=== PATIENT | female | born 1980 | race Caucasian/White ===

== ENCOUNTER 2017-10-03 12:25 | Emergency (ER) | payer MEDICAID ==
[2017-10-03] MEDS: SOD CHLORIDE 0.9% 1,000 ML IV (13:04)
[2017-10-03] MEDS: ONDANSETRON 4 MG INJ IV (13:04)
[2017-10-03 13:21] LABS: ADD MAN DIFF? NO
[2017-10-03 13:26] LABS: WHITE BLOOD COUNT 8.5 10^3/ul (4.8-10.8)
[2017-10-03 13:26] LABS: BASOPHILS % 0.2 % (0.0-2.0); HEMATOCRIT 39.4 % (37.0-47.0); HEMOGLOBIN 13.7 g/dl (12.0-16.0); LYMPHOCYTES # 1.2 10^3/ul (0.8-2.9); LYMPHOCYTES % 13.6 % (15.0-51.0); MEAN CORPUSCULAR HEMOGLOBIN 29.1 pg (29.0-33.0); MEAN CORPUSCULAR HGB CONC 34.8 g/dl (32.0-37.0); MEAN CORPUSCULAR VOLUME 83.7 fl (82.0-101.0); MEAN PLATELET VOLUME 9.8 fl (7.4-10.4); MONOCYTE # 0.4 10^3/ul (0.3-0.9); MONOCYTES % 5.2 % (0.0-11.0); NEUTROPHIL # 6.8 10^3/ul (1.6-7.5); NEUTROPHILS % 80.4 % (39.0-77.0); PLATELET COUNT 215 10^3/UL (140-415); RED BLOOD COUNT 4.71 10^6/ul (4.20-5.40); RED CELL DISTRIBUTION WIDTH 14.2 % (11.5-14.5)
[2017-10-03 13:39] LABS: ADD UMIC YES; UR ASCORBIC ACID NEGATIVE (NEGATIVE); UR BACTERIA FEW /HPF (NONE SEEN); UR BILIRUBIN (Dip) NEGATIVE (NEGATIVE); UR BLOOD (Dip) NEGATIVE (NEGATIVE); UR CLARITY SLIGHTLY CLOUDY (CLEAR); UR COLOR AMBER (YELLOW); UR GLUCOSE (Dip) 3+ mg/dL (NEGATIVE); UR KETONES (Dip) 2+ mg/dL (NEGATIVE); UR LEUKOCYTE ESTERASE (Dip) NEGATIVE Leu/ul (NEGATIVE); UR MUCUS MODERATE /HPF (NONE SEEN); UR NITRITE (Dip) NEGATIVE (NEGATIVE); UR RBC 0 /HPF (0-5); UR SPECIFIC GRAVITY (Dip) 1.024 (1.003-1.030); UR SQUAMOUS EPITHELIAL CELL FEW /HPF (FEW); UR TOTAL PROTEIN (Dip) 2+ mg/dl (NEGATIVE); UR UROBILINOGEN (Dip) NEGATIVE (NEGATIVE); UR WBC 1 /HPF (0-5)
[2017-10-03 14:15] LABS: ALANINE AMINOTRANSFERASE 24 IU/L (13-69); ALBUMIN 4.1 g/dl (3.3-4.9); ALKALINE PHOSPHATASE 60 IU/L (42-121); ANION GAP 18 (8-16); ASPARTATE AMINO TRANSFERASE 18 IU/L (15-46); BILIRUBIN,INDIRECT 0.4 mg/dl (0-1.1); BILIRUBIN,TOTAL 0.4 mg/dl (0.2-1.3); BLOOD UREA NITROGEN 12 mg/dl (7-20); CALCIUM 9.3 mg/dl (8.4-10.2); CARBON DIOXIDE 25 mmol/L (21-31); CHLORIDE 100 mmol/L (97-110); CREATININE 0.39 mg/dl (0.44-1.00); GLUCOSE 171 mg/dl (70-220); POTASSIUM 3.7 mmol/L (3.5-5.1); SODIUM 139 mmol/L (135-144); TOTAL PROTEIN 7.8 g/dl (6.1-8.1)
== END 2017-10-03 15:20 | disposition home or self-care (01) ==
LOC: FTE 12:25
DX: O21.9 Vomiting of pregnancy, unspecified (principal); O24.112 Pre-existing type 2 diabetes mellitus, in pregnancy, second trimester; R10.2 Pelvic and perineal pain; Z3A.15 15 weeks gestation of pregnancy; Z79.84 Long term (current) use of oral hypoglycemic drugs
CPT/HCPCS: 36415; 76805; 80053; 81001; 84702; 85025; 86900; 86901; 96374; 99285-25

== ENCOUNTER 2018-01-08 20:27 | Outpatient (CLI) | payer MEDICAID ==
[2018-01-08] MEDS: BISACODYL 10 MG SUPP PR (21:54)
[2018-01-09] MEDS: LACTATED RINGER'S 1,000 ML IV ×2 (00:33→02:16)
[2018-01-09] MEDS: ONDANSETRON 4 MG INJ IV (00:33)
[2018-01-09] MEDS: TERBUTALINE 1 MG/ML INJ SC (00:33)
[2018-01-09 01:04] LABS: ALANINE AMINOTRANSFERASE 29 IU/L (13-69); ALBUMIN 3.2 g/dl (3.3-4.9); ALBUMIN/GLOBULIN RATIO 0.96; ALKALINE PHOSPHATASE 97 IU/L (42-121); ANION GAP 13 (8-16); ASPARTATE AMINO TRANSFERASE 24 IU/L (15-46); BILIRUBIN,INDIRECT 0.8 mg/dl (0-1.1); BILIRUBIN,TOTAL 0.8 mg/dl (0.2-1.3); BLOOD UREA NITROGEN 9 mg/dl (7-20); CALCIUM 9.2 mg/dl (8.4-10.2); CARBON DIOXIDE 23 mmol/L (21-31); CHLORIDE 103 mmol/L (97-110); CREATININE 0.41 mg/dl (0.44-1.00); GLUCOSE 129 mg/dl (70-220); POTASSIUM 3.6 mmol/L (3.5-5.1); SODIUM 135 mmol/L (135-144); TOTAL PROTEIN 6.5 g/dl (6.1-8.1)
[2018-01-09] MEDS: DIPHENHYDRAMINE 50 MG INJ IV (03:58)
== END 2018-01-09 08:20 | disposition home or self-care (01) ==
LOC: OBT 20:27 → L-D 20:28
DX: O26.893 Other specified pregnancy related conditions, third trimester (principal); R10.2 Pelvic and perineal pain; O09.523 Supervision of elderly multigravida, third trimester; Z3A.30 30 weeks gestation of pregnancy
CPT/HCPCS: 36415; 76705; 80053; 96360; 96361; 96372; 96374; 96375

== ENCOUNTER 2018-01-11 13:05 | Inpatient (IN) | payer MEDICAID ==
[2018-01-11 14:40] LABS: ALANINE AMINOTRANSFERASE 27 IU/L (13-69); ALBUMIN 3.1 g/dl (3.3-4.9); ALBUMIN/GLOBULIN RATIO 1.03; ALKALINE PHOSPHATASE 86 IU/L (42-121); ANION GAP 11 (8-16); ASPARTATE AMINO TRANSFERASE 28 IU/L (15-46); BILIRUBIN,INDIRECT 0.9 mg/dl (0-1.1); BILIRUBIN,TOTAL 0.9 mg/dl (0.2-1.3); BLOOD UREA NITROGEN 8 mg/dl (7-20); CALCIUM 8.7 mg/dl (8.4-10.2); CARBON DIOXIDE 22 mmol/L (21-31); CHLORIDE 106 mmol/L (97-110); CREATININE 0.42 mg/dl (0.44-1.00); GLUCOSE 111 mg/dl (70-220); POTASSIUM 3.7 mmol/L (3.5-5.1); SODIUM 135 mmol/L (135-144); TOTAL PROTEIN 6.1 g/dl (6.1-8.1)
[2018-01-11 15:19] LABS: ADD MAN DIFF? NO
[2018-01-11 15:23] LABS: WHITE BLOOD COUNT 4.2 10^3/ul (4.8-10.8)
[2018-01-11 15:23] LABS: BASOPHILS % 0.2 % (0.0-2.0); EOSINOPHILS # 0.1 10^3/ul (0.0-0.5); EOSINOPHILS % 1.2 % (0.0-7.0); HEMATOCRIT 32.2 % (37.0-47.0); HEMOGLOBIN 11.3 g/dl (12.0-16.0); LYMPHOCYTES # 1.3 10^3/ul (0.8-2.9); LYMPHOCYTES % 31.6 % (15.0-51.0); MEAN CORPUSCULAR HEMOGLOBIN 30.5 pg (29.0-33.0); MEAN CORPUSCULAR HGB CONC 35.1 g/dl (32.0-37.0); MEAN PLATELET VOLUME 10.4 fl (7.4-10.4); MONOCYTE # 0.3 10^3/ul (0.3-0.9); MONOCYTES % 7.1 % (0.0-11.0); NEUTROPHIL # 2.5 10^3/ul (1.6-7.5); NEUTROPHILS % 59.4 % (39.0-77.0); PLATELET COUNT 200 10^3/UL (140-415); RED CELL DISTRIBUTION WIDTH 12.9 % (11.5-14.5)
[2018-01-11 15:44] LABS: ADD UMIC YES; UR ASCORBIC ACID NEGATIVE (NEGATIVE); UR BACTERIA MODERATE /HPF (NONE SEEN); UR BILIRUBIN (Dip) NEGATIVE (NEGATIVE); UR BLOOD (Dip) NEGATIVE (NEGATIVE); UR CLARITY CLOUDY (CLEAR); UR COLOR AMBER (YELLOW); UR GLUCOSE (Dip) 1+ mg/dL (NEGATIVE); UR KETONES (Dip) 1+ mg/dL (NEGATIVE); UR LEUKOCYTE ESTERASE (Dip) NEGATIVE Leu/ul (NEGATIVE); UR MUCUS FEW /HPF (NONE SEEN); UR NITRITE (Dip) NEGATIVE (NEGATIVE); UR NONSQUAMOUS EPITHELIAL CELL 1 /HPF (NONE SEEN); UR RBC 1 /HPF (0-5); UR SPECIFIC GRAVITY (Dip) 1.019 (1.003-1.030); UR SQUAMOUS EPITHELIAL CELL MANY /HPF (FEW); UR TOTAL PROTEIN (Dip) 1+ mg/dl (NEGATIVE); UR UROBILINOGEN (Dip) 2+ mg/dL (NEGATIVE); UR WBC 18 /HPF (0-5)
[2018-01-11] MEDS: ONDANSETRON 4 MG TAB PO (15:46)
[2018-01-11] MEDS: CEFAZOLIN 2 GM/50 ML (PMX) 50 ML IVPB (17:16)
[2018-01-11] MEDS: LACTATED RINGER'S 1,000 ML IV ×2 (17:16→22:27)
[2018-01-11] MEDS ORDERED: GLUCAGON 1 MG INJ IM (19:30)
[2018-01-11] MEDS ORDERED: GLUCOSE GEL 15 GRAM TUBE BUCCAL (19:30)
[2018-01-11] MEDS ORDERED: DEXTROSE 50% 50 ML SYRINGE IV ×2 (19:30)
[2018-01-11] MEDS ORDERED: GLUCOSE GEL 15 GRAM TUBE PO ×2 (19:30)
[2018-01-11] MEDS: ACCU-CHEK XX (22:18)
[2018-01-12] MEDS: CEFAZOLIN 2 GM/50 ML (PMX) 50 ML IVPB ×4 (00:20→22:05)
[2018-01-12] MEDS: INSULIN ASPART [NOVOLOG] 3 ML PEN SC ×2 (01:30→09:04)
[2018-01-12] MEDS: LACTATED RINGER'S 1,000 ML IV ×3 (02:19→15:23)
[2018-01-12] MEDS ORDERED: metFORMIN 500 MG TAB PO ×2 (07:35→17:35)
[2018-01-12] MEDS: ACCU-CHEK XX ×4 (08:02→20:05)
[2018-01-12] MEDS: ONDANSETRON 4 MG INJ IV ×2 (08:09→15:23)
[2018-01-12] MEDS: metFORMIN 500 MG TAB PO ×2 (09:05→19:44)
[2018-01-12] MEDS: NPH, HUMAN INSULIN ISOPHANE 3ML VIAL SC ×2 (09:05→22:00)
[2018-01-12] MEDS: BISACODYL 10 MG SUPP PR (17:11)
[2018-01-12] MEDS: INSULIN REGULAR, HUMAN 100 UNIT/1 ML 3ML VIAL SC (17:35)
[2018-01-13] MEDS: LACTATED RINGER'S 1,000 ML IV ×3 (00:27→18:21)
[2018-01-13] MEDS: CEFAZOLIN 2 GM/50 ML (PMX) 50 ML IVPB ×3 (05:47→22:29)
[2018-01-13] MEDS: ACCU-CHEK XX ×4 (07:51→19:53)
[2018-01-13] MEDS: BISACODYL 10 MG SUPP PR (07:52)
[2018-01-13] MEDS: metFORMIN 500 MG TAB PO ×2 (08:39→17:38)
[2018-01-13] MEDS: NPH, HUMAN INSULIN ISOPHANE 3ML VIAL SC ×2 (08:41→21:28)
[2018-01-13] MEDS: INSULIN ASPART [NOVOLOG] 3 ML PEN SC (08:43)
[2018-01-13] MEDS: NA PHOSPHATE/BIPHOS 133 ML ENEMA PR (10:32)
[2018-01-13] MEDS: POLYETHYLENE GLYCOL 17 GM PACKET PO ×2 (11:40→21:25)
[2018-01-13] MEDS: ONDANSETRON 4 MG INJ IV (16:40)
[2018-01-13] MEDS: INSULIN REGULAR, HUMAN 100 UNIT/1 ML 3ML VIAL SC (17:38)
[2018-01-14] MEDS: LACTATED RINGER'S 1,000 ML IV ×2 (03:27→10:19)
[2018-01-14] MEDS: CEFAZOLIN 2 GM/50 ML (PMX) 50 ML IVPB (05:51)
[2018-01-14] MEDS: ACCU-CHEK XX ×2 (08:26→11:02)
[2018-01-14] MEDS: metFORMIN 500 MG TAB PO (08:27)
[2018-01-14] MEDS: INSULIN ASPART [NOVOLOG] 3 ML PEN SC (08:30)
[2018-01-14] MEDS: NPH, HUMAN INSULIN ISOPHANE 3ML VIAL SC (08:31)
[2018-01-14] MEDS: POLYETHYLENE GLYCOL 17 GM PACKET PO (09:12)
== END 2018-01-14 13:25 | disposition home or self-care (01) | DRG 781 ==
LOC: OBT 13:05 → L-D 13:06 → OBT 18:20 → L-D 18:20 → PP1 21:31
PROVIDERS: Obstetrics & Gynecology
DX: O23.03 Infections of kidney in pregnancy, third trimester (principal); O99.613 Diseases of the digestive system complicating pregnancy, third trimester; Z3A.30 30 weeks gestation of pregnancy
CPT/HCPCS: 76815; 80053; 81001; 82962; 85025; 96360

== ENCOUNTER 2018-03-06 08:44 | Inpatient (IN) | payer MEDICAID ==
[2018-03-06] MEDS ORDERED: OXYTOCIN 30 UNITS/LR 500 ML IV (09:30)
[2018-03-06] MEDS ORDERED: MISOPROSTOL 200 MCG TAB PR ×2 (09:30→19:30)
[2018-03-06] MEDS ORDERED: CARBOPROST 250 MCG INJ IM ×2 (09:30→19:30)
[2018-03-06] MEDS ORDERED: METHYLERGONOVINE 0.2 MG INJ IM ×2 (09:30→19:30)
[2018-03-06] MEDS: LACTATED RINGER'S 1,000 ML IV ×3 (10:12→19:23)
[2018-03-06 11:32] LABS: ADD MAN DIFF? NO
[2018-03-06 11:40] LABS: WHITE BLOOD COUNT 4.2 10^3/ul (4.8-10.8)
[2018-03-06 11:40] LABS: BASOPHILS % 0.5 % (0.0-2.0); EOSINOPHILS # 0.1 10^3/ul (0.0-0.5); EOSINOPHILS % 1.4 % (0.0-7.0); HEMATOCRIT 35.9 % (37.0-47.0); HEMOGLOBIN 12.3 g/dl (12.0-16.0); LYMPHOCYTES # 1.7 10^3/ul (0.8-2.9); MEAN CORPUSCULAR HEMOGLOBIN 30.2 pg (29.0-33.0); MEAN CORPUSCULAR HGB CONC 34.3 g/dl (32.0-37.0); MEAN CORPUSCULAR VOLUME 88.2 fl (82.0-101.0); MEAN PLATELET VOLUME 11.1 fl (7.4-10.4); MONOCYTE # 0.3 10^3/ul (0.3-0.9); MONOCYTES % 7.4 % (0.0-11.0); NEUTROPHIL # 2.1 10^3/ul (1.6-7.5); NEUTROPHILS % 49.2 % (39.0-77.0); PLATELET COUNT 174 10^3/UL (140-415); RED BLOOD COUNT 4.07 10^6/ul (4.20-5.40); RED CELL DISTRIBUTION WIDTH 12.8 % (11.5-14.5)
[2018-03-06 11:58] LABS: INR 0.93; PROTIME 12.5 Sec (11.9-14.9)
[2018-03-06 11:59] LABS: PARTIAL THROMBOPLASTIN TIME 31.3 Sec (23.0-35.0)
[2018-03-06 11:59] LABS: GLUCOSE 81 mg/dl (70-220)
[2018-03-06 12:30] LABS: HEPATITIS B SURFACE ANTIGEN NEGATIVE (NEGATIVE)
[2018-03-06] MEDS ORDERED: morphine SULFATE/PF (10 MG/10 ML) INJ (16:25)
[2018-03-06] MEDS ORDERED: FENTAnyl 50 MCG/ML VIAL (16:25)
[2018-03-06] MEDS ORDERED: ONDANSETRON 4 MG INJ (16:26)
[2018-03-06] MEDS ORDERED: FAMOTIDINE 20 MG INJ (16:26)
[2018-03-06] MEDS ORDERED: DIPHENHYDRAMINE 50 MG INJ IV (17:30)
[2018-03-06] MEDS ORDERED: HYDROmorphONE 0.5 MG/0.5 ML SYG IV ×2 (17:30)
[2018-03-06] MEDS ORDERED: ZOLPIDEM 5 MG TAB PO (17:30)
[2018-03-06] MEDS ORDERED: NALOXONE (0.4 MG/ML) INJ IV (17:30)
[2018-03-06] MEDS: OXYTOCIN 30 UNITS/LR 500 ML IV ×2 (17:52→23:12)
[2018-03-06] MEDS: CEFAZOLIN 2 GM/50 ML (PMX) 50 ML IVPB (18:26)
[2018-03-06] MEDS: ONDANSETRON 4 MG INJ IV (19:03)
[2018-03-06] MEDS ORDERED: NA PHOSPHATE/BIPHOS 133 ML ENEMA PR (19:30)
[2018-03-06] MEDS ORDERED: NACL 0.9% 3 ML SYG IV (19:30)
[2018-03-06 20:52] LABS: ALANINE AMINOTRANSFERASE 35 IU/L (13-69); ALBUMIN 2.7 g/dl (3.3-4.9); ALBUMIN/GLOBULIN RATIO 0.96; ALKALINE PHOSPHATASE 153 IU/L (42-121); ANION GAP 6 (5-13); ASPARTATE AMINO TRANSFERASE 31 IU/L (15-46); BILIRUBIN,INDIRECT 0.9 mg/dl (0-1.1); BILIRUBIN,TOTAL 0.9 mg/dl (0.2-1.3); BLOOD UREA NITROGEN 9 mg/dl (7-20); CARBON DIOXIDE 22 mmol/L (21-31); CHLORIDE 106 mmol/L (97-110); CREATININE 0.41 mg/dl (0.44-1.00); Estimated GFR > 60 mL/min (>60); GLUCOSE 70 mg/dl (70-220); POTASSIUM 3.8 mmol/L (3.5-5.1); SODIUM 134 mmol/L (135-144); TOTAL PROTEIN 5.5 g/dl (6.1-8.1)
[2018-03-06] MEDS: KETOROLAC 30 MG INJ IV (21:08)
[2018-03-06 22:30] LABS: RAPID PLASMA REAGIN NONREACTIVE (NR)
[2018-03-07] MEDS: LACTATED RINGER'S 1,000 ML IV ×3 (03:23→19:23)
[2018-03-07] MEDS: KETOROLAC 30 MG INJ IV (05:56)
[2018-03-07] MEDS: HYDROCODONE/APAP (5/325) TAB PO (17:55)
[2018-03-07 19:22] LABS: ADD MAN DIFF? NO
[2018-03-07 19:23] LABS: BASOPHILS % 0.1 % (0.0-2.0); EOSINOPHILS % 0.1 % (0.0-7.0); HEMATOCRIT 27.2 % (37.0-47.0); HEMOGLOBIN 9.5 g/dl (12.0-16.0); LYMPHOCYTES # 1.1 10^3/ul (0.8-2.9); LYMPHOCYTES % 15.8 % (15.0-51.0); MEAN CORPUSCULAR HEMOGLOBIN 30.5 pg (29.0-33.0); MEAN CORPUSCULAR HGB CONC 34.9 g/dl (32.0-37.0); MEAN CORPUSCULAR VOLUME 87.5 fl (82.0-101.0); MONOCYTE # 0.4 10^3/ul (0.3-0.9); NEUTROPHIL # 5.2 10^3/ul (1.6-7.5); NEUTROPHILS % 77.7 % (39.0-77.0); PLATELET COUNT 169 10^3/UL (140-415); RED BLOOD COUNT 3.11 10^6/ul (4.20-5.40); RED CELL DISTRIBUTION WIDTH 12.8 % (11.5-14.5)
[2018-03-07 19:23] LABS: WHITE BLOOD COUNT 6.7 10^3/ul (4.8-10.8)
[2018-03-07] MEDS: IBUPROFEN 800 MG TAB PO (22:03)
[2018-03-08] MEDS: HYDROCODONE/APAP (5/325) TAB PO ×2 (03:14→17:08)
[2018-03-08] MEDS: LACTATED RINGER'S 1,000 ML IV ×3 (03:23→19:23)
[2018-03-08] MEDS: IBUPROFEN 800 MG TAB PO ×3 (05:36→21:49)
[2018-03-08] MEDS: LANOLIN 7 GM TUBE TOP (19:55)
[2018-03-08] MEDS: DOCUSATE SODIUM 100 MG CAP PO (21:48)
[2018-03-08] MEDS: POLYSACCHARIDE IRON COMPLEX CAP PO (23:30)
[2018-03-09] MEDS: HYDROCODONE/APAP (5/325) TAB PO (05:04)
[2018-03-09] MEDS: IBUPROFEN 800 MG TAB PO ×2 (05:54→14:07)
[2018-03-09] MEDS: MEASLES,MUMPS,RUBELLA VACCINE INJ SC* (09:00)
[2018-03-09] MEDS: DOCUSATE SODIUM 100 MG CAP PO (10:09)
[2018-03-09] MEDS: POLYSACCHARIDE IRON COMPLEX CAP PO (10:09)
[2018-03-09] MEDS: DIPHTH/TET/ACEL PERTUSS (ADULT) 0.5 ML VIAL IM* (10:10)
== END 2018-03-09 16:00 | disposition home or self-care (01) | DRG 785 ==
LOC: L-D 08:44 → PP1 20:05
PROVIDERS: Obstetrics & Gynecology
PROC: 10D00Z1 Extraction of Products of Conception, Low, Open Approach (ICD-10-PCS; principal; 2018-03-06 15:30)
PROC: 0UL70ZZ Occlusion of Bilateral Fallopian Tubes, Open Approach (ICD-10-PCS; 2018-03-06 15:30)
DX: O34.211 Maternal care for low transverse scar from previous cesarean delivery (principal); Z3A.37 37 weeks gestation of pregnancy; Z37.0 Single live birth; Z30.2 Encounter for sterilization
CPT/HCPCS: 80053; 82947; 85025; 85610; 85730; 86592; 86850; 86900; 86901; 87340; 88302; 90686; 90715; 93970; 99464

== ENCOUNTER 2018-03-19 14:53 | Emergency (ER) | payer MEDICAID | END 2018-03-19 17:25 | disposition home or self-care (01) | LOC: FTE 14:53 | DX: O90.2 Hematoma of obstetric wound (principal); E11.9 Type 2 diabetes mellitus without complications | CPT/HCPCS: 99283; Z7502 ==